=== PATIENT | female | born 2000 | race Two or more races ===

== ENCOUNTER 2024-09-30 10:14 | Outpatient (RCR) | payer MEDICAID, SELFPAY ==
--- NOTE | 2024-09-30 10:40 | PTNOTE_ITS ---
PT OP Initial Eval Patient Information Outpatient Physical Therapy Treatment Date: 09/30/24 Visit Reasons: Pain in RT hand Medical Diagnosis: M79.641 Start of Care: 09/30/24 Date of Onset: 15 yrs ago Smoking Status Smoking Status: Never smoker Initial Assessment Subjective: Pt is 23 yr old female who reports onset of B wrist pain in soha high that continues to hurt and varies in intensity and which wrist. Increased pain with pushing up from a chair. The last time she had intense pain was a couple weeks ago. This limits washing dishes. PMH: meningitis with shunt, seizures, histoplasmosis Imaging: none of the wrists Pt goal: to see if I can figure out what is causing the pain Objective: Rahul insurance verification representative strength: R: 64 lbs, L: 43 lbs Wrist AROM; Strength: Flexion: full B 4/5 Extension: full B 4/5 Pronation: full B Supination: full B AP translation of ulnar styloid: positive with pain B <5mm Assessment: Pt presents with hypermobility of the ulnar styloid anterior to posterior consistent with instability. This is causing pain with full wrist extension to push off. PT recommends she use wrist braces to stabilize the distal radial ulnar joint and she was given an example and an HEP printout. Pt will not likely benefit from skilled therapy to meet goals due to chronicity and since this is a ligamentous insufficiency and wrist strength is good. Short Term and [facility] Goals Eval and D/C Treatment Plan Eval and D/C Certification Dates: 09/30/24 Procedure Charges OP PT Eval Mod Complex 30 minutes: Yes
== END 2024-10-01 23:59 | disposition home or self-care (01) ==
LOC: CPTX 10:14
PROVIDERS: PCP Physician Assistant Medical; Referring Provider Physician Assistant Medical; Visit Provider Physician Assistant Medical
DX: M79.641 Pain in right hand (principal); M25.532 Pain in left wrist; M25.531 Pain in right wrist
CPT/HCPCS: 97162